=== PATIENT | female | born 1970 | race Caucasian/White ===

== ENCOUNTER 2019-04-29 10:51 | Emergency (ER) | payer OTHER ==
[2019-04-29] MEDS: ONDANSETRON (ODT) 4 MG TAB ODT (12:02)
[2019-04-29] MEDS: HYDROmorphONE 0.5 MG/0.5 ML SYG IM (12:02)
[2019-04-29 12:40] LABS: URINE BLOOD (Dip) POC Trace-intact (NEGATIVE); URINE GLUCOSE (Dip) POC Negative (NEGATIVE); URINE KETONES (Dip) POC 2+ (NEGATIVE); URINE LEUKOCYTE EST (Dip) POC Negative (NEGATIVE); URINE NITRITE (Dip) POC Negative (NEGATIVE); URINE TOTAL PROTEIN POC Negative (NEGATIVE)
== END 2019-04-29 13:48 | disposition home or self-care (01) ==
LOC: FTE 10:51
DX: M54.5 Low back pain (principal)
CPT/HCPCS: 72131; 81003; 81025; 96372; 99285-25